=== PATIENT | male | born 1970 | race Caucasian/White ===

== ENCOUNTER 2023-08-02 14:32 | Emergency (ER) | payer OTHER, SELFPAY ==
[2023-08-02 14:33] VITALS: BP 122/85; PULSE 77; RESP 14; TEMP 36.5; O2SAT 97
--- NOTE | 2023-08-02 14:40 | RAD_ITS ---
STUDY: X-RAY - LEFT FOOT CLINICAL: Male, 53 years old. Pain following injury. TECHNIQUE: 3 view(s) of the foot. COMPARISON: None. FINDINGS: Normal talus, calcaneus, and tarsal bones. Normal visualized subtalar, talonavicular, calcaneocuboid, tarsal and tarsometatarsal articulations. Nondisplaced transverse fracture at the base of the fifth metatarsal. Normal metatarsophalangeal joint of the great toe. Normal tibial and fibular sesamoid bones. Normal interphalangeal joint of the great toe. Normal phalanges of the great toe. Normal second through fifth metatarsophalangeal joints. Normal interphalangeal joints and phalanges of the lesser toes. Soft tissue swelling. RAD/Foot min 3 Views IMPRESSION: There is a nondisplaced transverse fracture at the base of the fifth metatarsal with overlying soft tissue swelling. Electronically Signed: Thomas Gates MD at 14:56 EDT ,
--- NOTE | 2023-08-02 15:17 | ED.VIS.LOWEX ---
HPI History of Present Illness Chief Complaint: Lower Extremity Injury Informant: patient Narrative Narrative: 53-year-old male presenting to the emergency department chief complaint of foot pain. Patient states that he works at the [employer] and was walking. He stepped off the curb sustained an inversion injury to his foot. He notes pain at along the lateral aspect of the foot as well as swelling and bruising. He denies any other injuries. PFSH PFSH Medical History no medical history Home Medications ?Medication ?Instructions ?Recorded ?Last Taken ?Type oxycodone-acetaminophen 5 mg-325 1 tab PO Q6H PRN PRN Pain 3 days 08/02/23 Unknown Rx mg tablet #12 TABLETS Allergy/AdvReac Type Severity Reaction Status Date / Time No Known Allergies Allergy Verified 08/02/23 14:35 Surgical History no surgical history Social History Smoking Status: Never smoker ROS ROS ED Constitutional Constitutional ED: Denies chills, fever(s) or weight loss Eyes Eyes: Denies change in vision or diplopia ENT ENT ED: Denies ear pain, rhinorrhea or sore throat Cardiovascular Cardiovascular: Denies chest pain, orthopnea, palpitations or racing heartbeat Respiratory/Chest Respiratory/Chest: Denies cough, dyspnea or orthopnea Gastrointestinal Gastrointestinal: Denies abdominal pain, diarrhea, nausea or vomiting Genitourinary Genitourinary ED: Denies dysuria, hematuria or urinary frequency Musculoskeletal Musculoskeletal: Reports other Details: See history of present illness ; Denies arthralgias, back pain, myalgias or neck pain Integumentary Denies abscess or rash Neurologic Neurologic: Denies headache(s) or weakness Psychiatric Psychiatric: Denies anxiety, depression, suicidal ideation or suicidal thoughts Endocrine Endocrinology: Denies polydipsia, polyphagia or polyuria Allergic/Immunologic Allergic/Immunologic ED: Denies mouth swelling, tongue swelling or urticaria EXAM Physical Exam Const Vital Signs: 08/02/23 14:33 Temperature 97.7 F L Temperature Source Temporal Pulse Rate 77 Respiratory Rate 14 Blood Pressure 122/85 H Blood Pressure Mean 97 Pulse Ox 97 Oxygen Delivery Method Room Air Positive well nourished and well developed General Appearance ED: well developed HEENT Reports normocephalic, head/scalp atraumatic and moist mucous membranes Eyes PERRL and EOMs intact bilaterally Neck no lymphadenopathy, supple and no JVD Resp normal respiratory effort and clear to auscultation bilaterally Cardio regular rate, regular rhythm and no murmurs GI normal to inspection, nondistended, normoactive bowel sounds and non-tender Palpation: soft Back/Spine no CVA tenderness and normal ROM Extremity Extremity Narrative: No tenderness at the fibular head. No tenderness along the tibial shaft. Ankle appears normal. Patient has tenderness swelling ecchymosis at the base of the fifth metatarsal. Neurovascular intact. General Extremety ED: Negative for edema General Extremity: Negative for edema Neuro oriented x3 and CN's II-XII intact bilaterally Sensorium / Orientation: alert Motor Exam: strength 5/5 throughout Psych mental status grossly normal Mood & Affect: Negative for depressed or tearful Skin no rashes or lesions noted and no wounds MDM MDM MDM Narrative Medical decision making narrative: Differential diagnosis but not limited to includes sprain strain fracture. My independent interpretation of the plain films of the left foot is a acute fracture through the base of the fifth metatarsal. Case was discussed with Dr. Silveira from podiatry. Patient will be placed in boot orthosis given crutches for partial weightbearing. Write for pain medication. Patient notes that he plans on traveling to [place] next week. He states his trip is nonrefundable. He is going to [place]. We talked about getting up frequently on the plane trav his thigh musculature wearing compressive stockings and signs and symptoms and further preventative measures for DVT. History & Record Review Discussion w/independent historian: Patient Radiography Diagnostic Testing: Clinical Impression(s) from Imaging Studies Foot X-Ray 08/02/23 14:40 IMPRESSION: There is a nondisplaced transverse fracture at the base of the fifth metatarsal with overlying soft tissue swelling. Electronically Signed: Thomas Gates MD at 14:56 EDT , Discharge Plan Triage Chief Complaint: Lower Extremity Injury ED Provider: Segundo Biggs Dx/Rx/DC Orders Clinical Impression: Fracture of fifth metatarsal bone of left foot, Acute foot pain Instructions: Fifth Metatarsal Fx Prescriptions: New oxycodone-acetaminophen 5-325 mg tablet 1 tab PO Q6H PRN PRN (Reason: Pain) 3 Days Qty: 12 0RF Primary Care Provider: NASIR PALMER Referrals: Kang Silveira DPM [Med Staff - Active Staff] - As soon as possible Print Language: Japanese Disposition Disposition: Home, Self Care
[2023-08-02 16:14] VITALS: BP 125/80; PULSE 71; RESP 18; TEMP 36.1; O2SAT 99
== END 2023-08-02 16:15 | disposition home or self-care (01) ==
PROVIDERS: Emergency Provider Emergency Medicine; PCP Family Medicine; Visit Provider Emergency Medicine
DX: S92.355A Nondisplaced fracture of fifth metatarsal bone, left foot, initial encounter for closed fracture (principal); M79.672 Pain in left foot; X58.XXXA Exposure to other specified factors, initial encounter; Y99.0 Civilian activity done for income or pay; Y92.89 Other specified places as the place of occurrence of the external cause
CPT/HCPCS: 73630; 99284